=== PATIENT | male | born 1995 | race American Indian/Alaskan Native ===

== ENCOUNTER 2020-01-16 10:53 | Emergency (ER) | payer SELFPAY ==
[~2020-01-16] VITALS: Ht 167.6 cm; Wt 77.0 kg
[2020-01-16 11:11] VITALS: BP 139/81
[2020-01-16] MEDS ORDERED: KETOROLAC 30MG/ML VIAL IM ONE (11:30)
[2020-01-16] MEDS ORDERED: CYCLOBENZAPRINE 10MG TABLET PO ONE (11:30)
== END 2020-01-16 12:11 | disposition home or self-care (01) ==
LOC: ER 11:03
DX: S39.012A Strain of muscle, fascia and tendon of lower back, initial encounter (principal); V49.9XXA Car occupant (driver) (passenger) injured in unspecified traffic accident, initial encounter; Y93.9 Activity, unspecified; Y92.410 Unspecified street and highway as the place of occurrence of the external cause
CPT/HCPCS: 72100; 96372; 99283; J1885

== ENCOUNTER 2020-03-22 12:48 | Emergency (ER) | payer MEDICAID, OTHER ==
[~2020-03-22] VITALS: Ht 162.6 cm; Wt 67.0 kg
[2020-03-22] MEDS ORDERED: PREDNISONE 20MG TABLET PO ONE (13:15)
[2020-03-22 14:15] VITALS: BP 101/53
== END 2020-03-22 14:16 | disposition home or self-care (01) ==
LOC: ER 12:48
DX: G51.0 Bell's palsy (principal); R51 Headache
CPT/HCPCS: 70450; 99284; J7512

== ENCOUNTER 2021-10-04 15:12 | Emergency (ER) | payer MEDICAID ==
[~2021-10-04] VITALS: Ht 172.7 cm; Wt 73.0 kg
[2021-10-04 15:59] VITALS: BP 131/89
== END 2021-10-04 18:50 | disposition home or self-care (01) ==
LOC: ER 15:12
DX: S92.251A Displaced fracture of navicular [scaphoid] of right foot, initial encounter for closed fracture (principal); W01.0XXA Fall on same level from slipping, tripping and stumbling without subsequent striking against object, initial encounter; Y93.02 Activity, running; Y92.9 Unspecified place or not applicable
CPT/HCPCS: 29515; 73620; 73630; 99283

== ENCOUNTER 2024-07-06 07:09 | Emergency (ER) | payer MEDICAID ==
[~2024-07-06] VITALS: Ht 167.6 cm; Wt 73.0 kg
[2024-07-06 07:11] VITALS: O2SAT 95
[2024-07-06 07:14] VITALS: O2SAT 97
[2024-07-06] MEDS: ONDANSETRON 4MG ODT PO STA (07:42)
[2024-07-06 07:57] LABS: BASOPHILS % 0.6 % (0.0-2.0); EOSINOPHILS % 0.5 % (0.0-5.0); MEAN CORPUSCULAR HEMOGLOBIN 28.7 pg (28.0-32.0); MEAN CORPUSCULAR HGB CONC 33.3 g/dL (31.0-37.0); MEAN CORPUSCULAR VOLUME 86.3 fL (80.0-94.0); MONOCYTES % 6.5 % (2.0-8.0); NEUTROPHILS % 65.4 % (40.0-76.0); PLATELET 400 x1000/uL (130-400); RED BLOOD CELL COUNT 5.56 mill/uL (4.7-6.1); RED CELL DISTRIBUTION WIDTH 13.2 % (11.6-14.6); WHITE BLOOD COUNT 11.7 x1000/uL (4.5-11.0)
[2024-07-06 08:06] LABS: CHLORIDE 104 mEq/L (98-107); POTASSIUM 4.1 mEq/L (3.5-5.1); SODIUM 136 mEq/L (136-145)
[2024-07-06 08:07] LABS: CARBON DIOXIDE 28 mEq/L (21-32)
[2024-07-06 08:08] LABS: CALCIUM 10.4 mg/dL (8.7-10.4)
[2024-07-06 08:12] LABS: GLUCOSE 92 mg/dL (70-105); UREA NITROGEN BLOOD 12 mg/dL (9-23)
[2024-07-06 08:17] LABS: TROPONIN I HIGH SENSITIVITY < 4 ng/L (3.0-53)
[2024-07-06 10:22] VITALS: BP 122/83; PULSE 66; RESP 14; TEMP 37.11408
== END 2024-07-06 10:46 | disposition short-term general hospital (02) ==
LOC: ER 07:09 → CANBEDREQ 09:22 → ER 10:46
DX: R07.9 Chest pain, unspecified (principal); R61 Generalized hyperhidrosis; F12.90 Cannabis use, unspecified, uncomplicated
CPT/HCPCS: 99285; 71045; 80048; 85025; 84484; 36415; 93005; Q0162